=== PATIENT | male | born 1980 ===

== ENCOUNTER → 2024-08-09 07:16 | Outpatient (CLI) | payer OTHER, SELFPAY ==
--- NOTE | 2024-08-09 | DI.US.S_ITS ---
PROCEDURE: US ABDOMEN LIMITED INDICATIONS: Elevated liver enzymes/pure hyperglyceridemia TECHNIQUE: Real-time scanning was performed of the abdominal and retroperitoneal organs, with image documentation. COMPARISON: None. FINDINGS: Liver: Liver appears normal in size and demonstrates diffusely increased echogenicity. Small focal hypoechoic region measuring 2.2 cm x 0.8 cm x 2.6 cm adjacent the gallbladder fossa likely focal fat sparing. Gallbladder: No gallstones. No wall thickening. No pericholecystic edema. Negative sonographic Hinds's sign. Biliary ducts: Intrahepatic bile ducts are non-dilated. Extrahepatic bile duct caliber measures 5 mm. Normal is 6-7 mm or less in diameter, or 10 mm or less post-cholecystectomy. Pancreas: Visualized portions of the pancreas are sonographically normal. IMPRESSION: Diffusely increased echogenicity of the liver suggestive of hepatic steatosis with probable focal fat sparing along the gallbladder fossa. Dictated by: Georgi Raymundo M.D. on 08/09/2024 at 10:27 Approved by: Georgi Raymundo M.D. on 08/09/2024 at 10:29
== END ==
DX: E78.1 Pure hyperglyceridemia (principal)
CPT/HCPCS: 76705